=== PATIENT | female | born 1965 | race African-American/Black ===

== ENCOUNTER → 2016-05-23 | Outpatient (CLI) | payer BC ==
[2014-08-09 15:26] VITALS: BP 156/90
--- NOTE | 2016-05-24 09:30 | RAD ---
Indication low abdominal pain for 3 weeks. Supine and upright films of the abdomen were obtained. No prior imaging of the abdomen is available. The lung bases are clear. The abdominal gas pattern is normal. There is no free air. No organomegaly or abnormal calculi are seen. There are apparent postoperative changes in the right abdomen IMPRESSION: No acute or significant finding seen in the abdomen on plain films.
== END | disposition home or self-care (01) ==
LOC: RAD 18:00
PROVIDERS: ATTEND Surgery
DX: R10.30 Lower abdominal pain, unspecified (principal)
CPT/HCPCS: 74020

== ENCOUNTER 2016-12-03 08:56 | Emergency (ER) | payer SELFPAY ==
[~2016-12-03] VITALS: Ht 144.8 cm; Wt 81.6 kg
[2016-12-03 09:07] VITALS: BP 164/95
[2016-12-03] MEDS ORDERED: BACI3.5O8 OS (09:21)
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
== END 2016-12-03 09:26 | disposition home or self-care (01) ==
LOC: ER 08:56
DX: S40.261A Insect bite (nonvenomous) of right shoulder, initial encounter (principal); W57.XXXA Bitten or stung by nonvenomous insect and other nonvenomous arthropods, initial encounter; Y93.89 Activity, other specified; Y92.89 Other specified places as the place of occurrence of the external cause; Y99.8 Other external cause status
CPT/HCPCS: 99283